=== PATIENT | female | born 1980 | race Caucasian/White ===

== ENCOUNTER → 2018-05-23 07:50 | Outpatient (CLI) | payer OTHER, SELFPAY ==
--- NOTE | 2018-05-23 07:52 | DI.MG.S_ITS ---
BILATERAL DIGITAL SCREENING MAMMOGRAM 3D/2D WITH CAD: 05/23/2018 CLINICAL: Routine screening. Comparison is made to exams dated: 03/03/2016 mammogram and 07/26/2015 mammogram - [facility]. The tissue of both breasts is extremely dense, which lowers the sensitivity of mammography. Current study was also evaluated with a Computer Aided Detection (CAD) system. There is a new oval asymmetry in the right breast posterior depth central to the nipple seen on the craniocaudal view only. Finding is best noted on tomographic CC slice 50. There is are grouped calcifications in the left breast inner aspect middle to posterior depth. These are increased in number. IMPRESSION: INCOMPLETE: NEEDS ADDITIONAL IMAGING EVALUATION The new oval asymmetry in the right breast posterior depth central to the nipple seen on the craniocaudal view only is indeterminate. Additional views with possible ultrasound are recommended. The calcifications in the left breast inner aspect middle to posterior depth are indeterminate. Additional views with possible ultrasound are recommended. This exam was interpreted at Station ID: [id number]. NOTE: For mammograms, a report in lay terms will be sent to the patient. Approximately 15% of breast malignancies will not be visualized mammographically. In the management of a palpable breast mass, a negative mammogram must not discourage biopsy of a clinically suspicious lesion. Electronically Signed By: Ran Hays M.D. ecl/:05/23/2018 19:21:21 copy to: RACHELLE PIERRE copy to: Sushil Alvares letter sent: Additional Imaging Needed ACR BI-RADS Category 0: Incomplete 3340F
--- NOTE | 2018-05-23 07:52 | DI.MRI.S_ITS ---
BREAST MRI OF BOTH BREASTS: 05/23/2018 CLINICAL: BRCA GENE 2 Mutation Positive. PROCEDURE: MR BREAST BI WO/W CON INDICATIONS: BRCA 2 positive. TECHNIQUE: The patient was placed prone in a dedicated breast imaging coil. Precontrast axial STIR and 3D FLASH without fat saturation sequences were obtained. Both before and after bolus injection of contrast, sequential 1-minute axial 3D FLASH with fat saturation sequences for 3 time points, with subtraction images and maximum intensity projections (MIP's) generated. Delayed sagittal FLASH images with fat saturation were also obtained. 20 ccs of Prohance intravenous contrast was utilized for this exam. Computer-aided detection, including computer algorithm analysis of MRI image data for lesion detection and characterization, pharmacokinetic analysis, with further physician review for interpretation, was performed. COMPARISON: [facility], MM SCREENING MAMMO BI, 05/23/2018, 8:25. [facility], US, BREAST UNILATERAL LIMITED, 03/03/2016, 9:20. [facility], BILATERAL DIAGNOSTIC MAMMOGRAM, 03/03/2016, 8:45. [facility], US, BREAST UNILATERAL LIMITED, 09/03/2015, 10:55. [facility], , BILATERAL BREAST W FINDINGS: Image quality: Excellent. There is marked background parenchymal enhancement bilaterally. There is extremely dense fibroglandular tissue bilaterally. Right breast: There is a 0.8 x 0.4 cm transaxial oval circumscribed mass in the inferior medial right breast near the 4:00 position middle depth, best seen on axial image 49 of series 10. This mass demonstrates persistent contrast enhancement kinetics, T2 signal hyperintensity on axial STIR imaging (as seen on axial image 22 of series 2), and internal T1 hyperintense fatty hilum on axial image 44 of series 3 consistent with an intramammary lymph node. There is a 0.7 x 0.5 cm transaxial oval circumscribed mass in the superior medial right breast near 12:00 position posterior depth, best seen on axial image 71 of series 10. This mass demonstrates persistent contrast enhancement kinetics, an internal fatty hilum suggestive of an intramammary lymph node, and is unchanged in size and appearance when compared with prior breast MRI of 08/30/15. Left breast: There is 0.4 x 0.4 cm transaxial focus of non-mass enhancement in the lower-outer left breast at middle depth near the 4:00 position. This focus demonstrates persistent contrast enhancement kinetics and no correlate on comparison breast MRI of 08/30/15. Miscellaneous: No axillary or internal mammary lymphadenopathy. IMPRESSION: INCOMPLETE: NEEDS ADDITIONAL IMAGING EVALUATION 1. Difficult exam given bilateral marked background parenchymal enhancement and extremely dense fibroglandular tissue. 2. 0.4 cm focus of non-mass enhancement in the lower-outer left breast at middle depth near the 4:00 position. A second look targeted ultrasound is recommended for further evaluation. 3. Probable 0.8 cm intramammary lymph node in the right breast near the 4:00 position middle depth and probable 0.7 cm intramammary lymph node in the right breast near the 12:00 position posterior depth. These can also be evaluated on the second look ultrasound recommended above. 4. No axillary or internal mammary lymphadenopathy. BIRADS 0: Incomplete. Need Additional Imaging Evaluation. COMMENT: The imaging literature indicates that a negative contrast breast MRI examination has a high sensitivity and a moderate specificity for detecting and excluding invasive carcinomas to a detection threshold of 3-5 mm; nonetheless, appropriate clinical and mammographic follow-up are recommended. MRI is not sensitive for detecting DCIS (ductal carcinoma in situ) and may not detect large invasive neoplasms that show only minimal enhancement such as mucinous carcinoma. If there are suspicious calcifications or clinically worrisome palpable masses, then biopsy should still be considered. Invasive neoplasms can be hidden by co-existent and benign enhancement caused by mastitis, hormone therapy effects, radiation therapy, , and recent biopsy or surgery. False positive examinations can occur in a number of circumstances, including breasts that have recently been subject to invasive procedures and those that contain atypical ductal hyperplasia, hormonally stimulated glandular tissue, fat necrosis, or radial scars. This exam was interpreted at Station ID: [id number]. Electronically Signed By: Ran Hays M.D. ecl/:05/23/2018 18:28:10 copy to: RACHELLE PIERRE copy to: Sushil Alvares letter sent: Additional Imaging Needed ACR BI-RADS Category 0: Incomplete 3340F
== END ==
PROVIDERS: Family Provider Family Medicine; PCP Family Medicine; Visit Provider Obstetrics & Gynecology
DX: Z15.01 Genetic susceptibility to malignant neoplasm of breast (principal); Z15.09 Genetic susceptibility to other malignant neoplasm
CPT/HCPCS: 77063; 77067; A9579; C8908

== ENCOUNTER → 2018-06-03 09:02 | Outpatient (CLI) | payer OTHER, SELFPAY ==
--- NOTE | 2018-06-03 09:03 | DI.US.S_ITS ---
LIMITED ULTRASOUND OF RIGHT BREAST: 06/03/2018 CLINICAL: Patient returns today to evaluate findings in the right breast seen on MRI. Comparison is made to exams dated: 05/23/2018 mammogram, 03/03/2016 mammogram, 09/03/2015 ultrasound, 08/30/2015 breast MRI, 07/26/2015 mammogram, and 05/23/2018 breast MRI - [facility]. Real-time and Doppler ultrasound of the right breast 4 o'clock and 12 o'clock regions were performed. Menon scale images of the real-time examination were reviewed. Targeted ultrasound was performed along the 12 o'clock and 4 o'clock positions of the right breast in the region of the probable intramammary lymph nodes described on comparison breast MRI of 05/23/2018. No underlying breast mass or abnormality is identified. IMPRESSION: PROBABLY BENIGN No ultrasound evidence of an underlying breast mass or abnormality is identified at the 12 o'clock and 4 o'clock positions of the right breast at the sites of the probable intramammary lymph nodes described on comparison breast MRI of 05/23/2018. A follow-up diagnostic mammogram and possible targeted ultrasound in 6 months is recommended to demonstrate stability. These results and recommendations were discussed with the patient at the time of the exam by the [facility] Radiologist Dr. Robbie Hess in person. This exam was interpreted at Station ID: [id number]. Electronically Signed By: Ran Hays M.D. ecl/:06/03/2018 10:26:08 copy to: RACHELLE PIERRE copy to: Sushil Alvares letter sent: Followup Recommended Ultrasound BI-RADS: 3 Probably benign
--- NOTE | 2018-06-03 10:59 | DI.US.S_ITS ---
LIMITED ULTRASOUND OF LEFT BREAST: 06/03/2018 CLINICAL: Patient returns today to evaluate findings seen on MRI in the left breast. Comparison is made to exams dated: 05/23/2018 breast MRI, 05/23/2018 mammogram, 03/03/2016 mammogram, 03/03/2016 ultrasound, 08/30/2015 breast MRI, and 07/26/2015 ultrasound - [facility]. Real-time and Doppler ultrasound of the left breast 3-4 o'clock region were performed. Menon scale images of the real-time examination were reviewed. There is 0.5 cm x 0.4 cm x 0.4 cm oval mass with a circumscribed margin in the left breast at 4 o'clock 4 cm from the nipple. This oval mass is hypoechoic with internal echoes and mild posterior acoustic enhancement. This may correlate with breast MRI findings. Color flow imaging demonstrates that there is no vascularity present. There is 0.8 cm x 0.6 cm x 0.4 cm oval mass with a circumscribed margin in the left breast at 3 o'clock 4 cm from the nipple. This oval mass is hypoechoic with internal echoes and mild posterior acoustic enhancement. This may correlate with breast MRI findings. Color flow imaging demonstrates that there is no vascularity present. IMPRESSION: SUSPICIOUS OF MALIGNANCY 1) The 0.5 cm x 0.4 cm x 0.4 cm oval mass in the left breast at 4 o'clock 4 cm from the nipple may represent a complicated cyst and is at a low suspicion for malignancy. An ultrasound guided cyst aspiration is recommended, with subsequent ultrasound guided biopsy recommended should cyst aspiration fail to remove the mass of concern. 2) The 0.8 cm x 0.6 cm x 0.4 cm oval mass in the left breast at 3 o'clock 4 cm from the nipple may represent a complicated cyst and is at a low suspicion for malignancy. An ultrasound guided cyst aspiration is recommended, with subsequent ultrasound guided biopsy recommended should cyst aspiration fail to remove the mass of concern. These results and recommendations were discussed with the patient at the time of the exam by the [facility] Radiologist Dr. Robbie Hess in person. This exam was interpreted at Station ID: [id number]. Electronically Signed By: Ran Hays M.D. ecl/:06/03/2018 10:18:48 copy to: RACHELLE PIERRE copy to: Sushil Hogge letter sent: Biopsy Required Ultrasound BI-RADS: 4a Suspicious abnormality - low suspicion for malignancy
== END ==
PROVIDERS: Family Provider Family Medicine; PCP Family Medicine; Visit Provider Obstetrics & Gynecology
DX: R92.8 Other abnormal and inconclusive findings on diagnostic imaging of breast (principal); N63.23 Unspecified lump in the left breast, lower outer quadrant
CPT/HCPCS: 76642

== ENCOUNTER → 2018-06-21 07:43 | Outpatient (CLI) | payer OTHER, SELFPAY ==
--- NOTE | 2018-06-21 | DI.US.S_ITS ---
MULTIPLE FINE NEEDLE ASPIRATIONS LEFT BREAST: 06/21/2018 CLINICAL: FNA of 2 breast masses/cysts. Correlation is made to exams dated: 06/03/2018 ultrasound, 05/23/2018 breast MRI, 05/23/2018 mammogram, 03/03/2016 mammogram, and 03/03/2016 ultrasound - [facility]. A fine needle aspiration was performed for the 0.5 cm oval complicated cyst located in the left breast at 4 o'clock anterior depth 4 cm from the nipple. This was described on the previous ultrasound report. The skin was prepped in the usual manner. Local anesthetic was administered to the access site. The abnormality was approached from the lateral aspect. An 18 gauge needle was percutaneously placed into the abnormality under guidance. Once the needle was documented to be in the correct location, the lesion completely collapsed with aspiration. The clear fluid was discarded. A second fine needle aspiration was performed for the 0.6 cm complicated cyst located in the left breast at 3 o'clock anterior depth 4 cm from the nipple. This was described on the previous ultrasound report. The skin was prepped in the usual manner. Local anesthetic was administered to the access site. The abnormality was approached from the lateral aspect. An 18 gauge needle was percutaneously placed into the abnormality under guidance. Once the needle was documented to be in the correct location, this cyst completely decompressed with aspiration and the clear aspirate was discarded. IMPRESSION: FINE NEEDLE ASPIRATION BENIGN Fine needle aspiration of the 0.6 cm cyst in the left breast at 3 o'clock anterior depth was successful. Fine needle aspiration of the 0.5 cm cyst in the left breast at 4 o'clock anterior depth was successful. Clear felix fluid aspirate indicated benign finding. A follow-up mammogram in 6 months and a breast MRI in 12 months is recommended to demonstrate stability/resolution. The patient is at high risk for breast cancer given positive test for BRCA. Recommend annual screening mammograms and MRIs offset by 6 months from each other. Patient is also requiring a follow up right breast mammogram and right breast ultrasound to evaluate for stability of possible intramammary lymph node seen on recent breast MRI dated 05/23/2018. This exam was interpreted at Station ID: [id number]. Jack Miguel M.D. at/:06/24/2018 14:09:15 copy to: RACHELLE PIERRE copy to: Sushil Alvares
== END ==
PROVIDERS: Family Provider Family Medicine; PCP Family Medicine; Visit Provider Obstetrics & Gynecology
DX: N60.02 Solitary cyst of left breast (principal)
CPT/HCPCS: 10005; 10006; 76942

== ENCOUNTER → 2019-02-14 08:52 | Outpatient (CLI) | payer OTHER, SELFPAY ==
--- NOTE | 2019-02-14 | DI.US.S_ITS ---
LIMITED ULTRASOUND OF LEFT BREAST: 02/14/2019 CLINICAL: 6 month follow-up biopsy. Comparison is made to exams dated: 02/14/2019 mammogram, 06/21/2018 fine needle aspiration, 06/03/2018 ultrasound, 05/23/2018 breast MRI, 05/23/2018 mammogram, and 03/03/2016 mammogram - [facility]. Color flow and real-time ultrasound of the left breast 3-4 o'clock region were performed. Menon scale images of the real-time examination were reviewed. There is a biopsy proven benign 0.9 cm x 0.3 cm x 0.5 cm oval cyst in the left breast at 3 o'clock middle depth 4 cm from the nipple. This abnormality is not significantly changed. Color flow imaging demonstrates that there is no vascularity present. The aspirated cyst previously seen in the 4:00 region is no longer present. IMPRESSION: BENIGN There is no sonographic evidence of malignancy. The 0.9 cm x 0.3 cm x 0.5 cm oval cyst in the left breast is benign. Return to annual mammogram and a breast MRI screening schedule is recommended. Findings and recommendations were conveyed to the patient at time of exam. This exam was interpreted at Station ID: [id number]. Electronically Signed By: Jayla lainez/:02/14/2019 11:33:00 copy to: RACHELLE PIERRE copy to: Sushil Alvares letter sent: Normal Exam Ultrasound BI-RADS: 2 Benign
--- NOTE | 2019-02-14 08:53 | DI.MG.S_ITS ---
BILATERAL DIGITAL DIAGNOSTIC MAMMOGRAM 3D/2D: 02/14/2019 CLINICAL: Patient returns for a 6 month follow up of bilateral breasts. Comparison is made to exams dated: 05/23/2018 breast MRI, 05/23/2018 mammogram, and 03/03/2016 mammogram - [facility]. The tissue of both breasts is extremely dense, which lowers the sensitivity of mammography. Diffuse microcalcifications are scattered bilaterally, left more than right. No significant masses, calcifications, or other findings are seen in either breast. No right breast findings on mammogram to correspond to findings on MRI. IMPRESSION: INCOMPLETE: NEEDS ADDITIONAL IMAGING EVALUATION No suspicious findings in either breast. Bilateral breast ultrasound recommended for further follow up of right breast MRI findings and left breast biopsied lesions. This was performed immediately following this exam. This exam was interpreted at Station ID: [id number]. NOTE: For mammograms, a report in lay terms will be sent to the patient. Approximately 15% of breast malignancies will not be visualized mammographically. In the management of a palpable breast mass, a negative mammogram must not discourage biopsy of a clinically suspicious lesion. Electronically Signed By: Jayla lainez/:02/14/2019 11:26:56 copy to: RACHELLE PIERRE copy to: Sushil Alvares ACR BI-RADS Category 0: Incomplete 3340F
--- NOTE | 2019-02-14 08:53 | DI.US.S_ITS ---
LIMITED ULTRASOUND OF RIGHT BREAST: 02/14/2019 CLINICAL: 6 month follow-up. Comparison is made to exams dated: 02/14/2019 mammogram, 06/03/2018 ultrasound, 05/23/2018 breast MRI, 05/23/2018 mammogram, 03/03/2016 mammogram, and 09/03/2015 ultrasound [facility]. Color flow and real-time ultrasound of the right breast 4 o'clock, 6 o'clock, and 12 o'clock regions were performed. Menon scale images of the real-time examination were reviewed. The breast tissue of the right breast is homogeneous dense. No significant abnormalities were seen sonographically in the right breast. Specifically, no findings to correspond to the findings on breast MRI. IMPRESSION: NEGATIVE There is no sonographic evidence of malignancy. Return to annual mammogram and a breast MRI screening schedule is recommended. Findings and recommendations were conveyed to the patient at time of exam. This exam was interpreted at Station ID: [id number]. Electronically Signed By: Jayla lainez/:02/14/2019 11:29:30 copy to: RACHELLE PIERRE copy to: Sushil Alvares Ultrasound BI-RADS: 1 Negative
== END ==
PROVIDERS: Family Provider Family Medicine; PCP Family Medicine; Visit Provider Obstetrics & Gynecology
DX: R92.8 Other abnormal and inconclusive findings on diagnostic imaging of breast (principal); R92.1 Mammographic calcification found on diagnostic imaging of breast; N60.02 Solitary cyst of left breast; Z15.01 Genetic susceptibility to malignant neoplasm of breast; Z15.09 Genetic susceptibility to other malignant neoplasm
CPT/HCPCS: 76642; 77066; G0279

== ENCOUNTER 2019-05-26 08:43 | Day surgery (SDC) | payer OTHER, SELFPAY ==
[2019-05-26] VITALS (9 sets, daily range): BP systolic 101–118; BP diastolic 62–78; PULSE 61–86; RESP 10–16; TEMP 36.3–36.9; O2SAT 96–978; BMI 25.2
--- NOTE | 2019-05-26 | PATH_ITS ---
[facility] Accession Number: [id number] . 01 Material submitted: . uterine adnexa - BILATERAL TUBES AND OVARIES . 02 Diagnosis: Bilateral Tubes and Ovaries, Bilateral Salpingo-oophorectomy: Ovary #1 with corpora lutea and no significant histomorphologic abnormality. Ovary #2 with a prominent hemorrhagic corpus luteum and no significant histomorphologic abnormality. Fallopian tube #1 with benign paratubal cysts (up to 8 mm in greatest dimension) and no significant histomorphologic abnormality; negative for atypia or malignancy. Fallopian tube #2 with no significant histomorphologic abnormality; negative for atypia or malignancy. [facility] 05/29/2019 1328 Local . 02 Electronically signed: . Nahomi Anthony MD, Pathologist NPI- [id number] . 01 Gross description: . Received in formalin, labeled bilateral tubes + ovaries, are two ovaries (ovary #1-4.5 x 1.7 x 1.5 cm; ovary #2-2.9 x 1.8 x 1.1 cm) with attached fimbriated fallopian tubes (tube #1: length-5.8 cm, diameter-0.5 cm; tube #2: length-8.2 cm, diameter-0.7 cm). The ovaries have clay-yellow smooth shiny bosselated and focally flat serosa and clay-white solid firm parenchyma with corpus albicans and corpus luteum identified. The fallopian tubes have dark maroon smooth shiny serosa and clay unremarkable lumens. Section code: (A1) ovary #1, sales representative raw fibers serial sections; (A2) ovary #2, sales representative raw fibers serial sections; (A3) fallopian tube #1, sales representative raw fibers serial sections; (A4-A5) fimbria #1, bivalved, entirely submitted; (A6) fallopian tube #2, sales representative raw fibers serial sections; (A7-A8) fimbria #2, bivalved, entirely submitted. ([id number]) /MRV 05/27/2019 1353 Local . 02 Pathologist provided ICD-10: Z15.01 . 02 CPT . 224187 Performed at: [facility] [address] [id number] MD Tommie Nunez MD Phone: [phone] Performed at: [address] [facility] [id number] [place], [place] [id number] MD Ida Castro MD Phone: [phone]
[2019-05-26] MEDS: LACTATED RINGERS 1,000 ML 100 ML IV (09:20)
[2019-05-26] MEDS: SCOPOLAMINE 1 PATCH TOP (10:21)
[2019-05-26] MEDS: APREPITANT 40 MG CAPSULE PO (10:21)
--- NOTE | 2019-05-26 10:41 | PM.HP.1 ---
History of Present Illness History of Present Illness Date Patient Seen: 05/26/19 Time Patient Seen: 10:41 Chief complaint: 44819 Narrative: Patient is a 38-year-old 4 para 3 who presents for a laparoscopic bilateral salpingo-oophorectomy due to BRCA positive status Patient History Medical History (Updated 05/16/19 @ 12:54 by Yesenia Rosales RN) Abnormal Pap smear of cervix (Resolved ~2005) BRCA2 gene mutation positive (Acute) Chicken pox (Resolved ~1989) Headache (Chronic) Migraines (Chronic ~2001) Surgical History (Updated 05/14/18 @ 21:17 by Jane Sarkar) Anesthesia (Resolved) Status post delivery (04/17/06) Status post delivery (09/24/10) Family & Social History Family History (Updated 08/10/14 @ 00:00 by Conversion Provider) Grandfather Age: 88 High cholesterol Mother Age: 59 High cholesterol Grandfather No problems noted. Grandmother No problems noted. Social History: household members spouse,children Tobacco & Substance use: Smoking Status Never smoker alcohol intake current alcohol intake frequency a few times a week Substance Use Type does not use Meds Home Medications and Allergies Home Medications Medication Instructions Recorded Confirmed Type ibuprofen 200 mg PO PRN #0 07/23/12 05/26/19 History sumatriptan succinate 100 mg tablet 50 - 100 mg PO PRN PRN #10 tab 06/03/18 05/26/19 Rx Allergies Allergy/AdvReac Type Severity Reaction Status Date / Time No Known Drug Allergies Allergy Verified 05/26/19 09:14 Exam Vital Signs (past 8 hours): - 05/26/19 09:04 Temperature 97.6 F Pulse Rate 75 Respiratory Rate 15 Blood Pressure 118/71 Pulse Oximetry 98 Oxygen Delivery Method Room Air Narrative Exam Narrative: HEENT: No thyromegaly, no anterior cervical or supraclavicular lymphadenopathy. Lungs:Clear to auscultation bilaterally, no wheezes. Cardiovascular: Regular rate and rhythm, no murmurs, rubs, or gallops. Abdomen: Well-healed Pfannenstiel scar. No hepatosplenomegaly. No masses palpable. External genitalia: Normal Vagina: Normal Cervix: Normal Bimanual exam: 6 Week size uterus. Mobile. Rectal: No masses. Assessment & Plan Assessment & Plan narrative: Assessment: 38-year-old 4 para 3 who is BRCA 2 positive Plan: Laparoscopic bilateral salpingo-oophorectomy The risks, benefits, and alternatives to the procedure were explained to the patient. The risks including bleeding, infection, injury to the bowel, bladder, or ureters. She understands these risks and agrees to proceed. A full par Q was held and consent form was signed. Time Spent With Patient Time with patient: 15-24 minutes
--- NOTE | 2019-05-26 10:43 | PM.PREOP ---
Pre-operative Note Interval Note History & Physical reviewed/Exam performed by Physician: Yes Changes to H&P: No
--- NOTE | 2019-05-26 11:20 | SUR.OPER ---
Lithotomy on padded OR bed, head on pillow, arms secured on padded arm boards at <90 degrees abduction. Legs secured in padded yellow fins stirrups.
[2019-05-26] MEDS: BUPIVACAINE 0.5% W/ EPI (PF) 30 ML VIAL INJ (11:27)
--- NOTE | 2019-05-27 07:20 | PM.GYNOP.1 ---
Operative Date/Time/Diagnoses Date of procedure: 05/26/19 Time of procedure: 13:30 Pre-op diagnosis: BRCA 2 positive Post-op diagnosis: same Procedure & Clinicians Procedure: Procedures Operation Date: 05/26/19 10:45 Actual Procedures Side Surgeon p Laparoscopic Salpingectomy-oophorectomy Bilateral Shelia Vázquez MD Indications: BRCA 2 positive Surgeon: Shelia Vázquez Anesthesia Type: General Operative Notes Findings: Normal tubes and ovaries Normal gallbladder Normal appendix Normal uterus Closure Type: primary Specimen(s): left tube & ovary and right tube & ovary Estimated blood loss (mL): 5 Blood products transfused: none Procedure in detail: After informed consent was obtained, the patient was taken to the operating room where she was placed in the dorsal supine position. After adequate general endotracheal anesthesia was achieved, she was placed in the dorsal lithotomy position, and prepped and draped in the usual sterile fashion. A time-out was performed. A bivalve speculum was placed into the vagina and the anterior lip of cervix was grasped with a single-tooth tenaculum. The cervical os was sequentially dilated until the Zumi uterine manipulator could pass easily into the endometrial cavity. The single-tooth tenaculum was removed from the anterior lip of the cervix. The bivalve speculum was removed from the vagina. Attention was then turned to the abdomen where 6 cc of 0.5% Marcaine with epinephrine were injected in the umbilical fold. A 5 mm incision was made. The Veress needle was placed into the peritoneal cavity, and its placement confirmed by aspiration and drop test. The abdominal cavity was insufflated with 3.8 L of CO2. The Veress needle was removed, and a 5 mm trocar was placed without difficulty. Two other incisions were made midway between the pubic symphysis and umbilicus after 6 cc of 0.5% Marcaine with epinephrine were injected. Two 5 mm trocars were placed under direct visualization. The right tube and ovary were grasped with an atraumatic grasper. With settings at 40 w, the infundibulopelvic ligament was cauterized and cut with the PlasmaKinetic as was the utero-ovarian ligament. The tube was amputated from the uterus at the cornua. This was repeated on the patient's left side. 6 cc of 0.5% Marcaine with epinephrine were injected through the previous Pfannenstiel incision. A 1 cm incision was made. An 11 mm trocar was placed through the suprapubic incision. The small endobag was placed into the peritoneal cavity. The tubes and ovaries were placed into the bag. The trocar was removed. The fascia was extended slightly and the bag was removed through the suprapubic incision. The pelvis was irrigated and there was no bleeding noted. The instruments were removed from the abdomen. The CO2 was allowed to escape. The incisions were repaired with 0 Vicryl on the suprapubic incision on the fascia. All of the incisions were closed with 4 0 Biosyn in a subcuticular fashion. Steri-Strips, 2 x 2, and op site were placed. The Zumi uterine manipulator was removed from the uterus. Sponge, lap, and instrument counts were correct x2. The patient tolerated the procedure well, and was taken to PACU in stable condition. Complications: none Post-operative Condition: stable Disposition: PACU Plan for aftercare: Home after recovery
== END 2019-05-26 13:05 | disposition home or self-care (01) ==
PROVIDERS: PCP Family Medicine; Visit Provider Obstetrics & Gynecology
PROC: 0UT74ZZ Resection of Bilateral Fallopian Tubes, Percutaneous Endoscopic Approach (ICD-10-PCS; CPT 58661; principal; 2019-05-26 10:45)
DX: Z15.01 Genetic susceptibility to malignant neoplasm of breast (principal); G43.909 Migraine, unspecified, not intractable, without status migrainosus; N83.10 Corpus luteum cyst of ovary, unspecified side; N83.8 Other noninflammatory disorders of ovary, fallopian tube and broad ligament
CPT/HCPCS: 58661; J2250; J3010; J8501

== ENCOUNTER → 2019-07-08 08:49 | Outpatient (CLI) | payer OTHER, SELFPAY ==
--- NOTE | 2019-07-08 08:51 | DI.MRI.S_ITS ---
BREAST MRI OF BOTH BREASTS: 07/08/2019 CLINICAL: BRCA 2 Positive. PROCEDURE: MR BREAST BI WO/W CON INDICATIONS: 1yr f/u BRCA 2 positive TECHNIQUE: The patient was placed prone in a dedicated breast imaging coil. Precontrast axial STIR and 3D FLASH without fat saturation sequences were obtained. Both before and after bolus injection of contrast, sequential 1-minute axial 3D FLASH with fat saturation sequences for 3 time points, with subtraction images and maximum intensity projections (MIP's) generated. Delayed sagittal FLASH images with fat saturation were also obtained. Computer-aided detection, including computer algorithm analysis of MRI image data for lesion detection and characterization, pharmacokinetic analysis, with further physician review for interpretation, was performed. COMPARISON: [facility], BREAST LT LIMITED, 02/14/2019, 10:08. [facility], BREAST LT LIMITED, 06/03/2018, 9:31. [facility], , MR BREAST BI WO/W CON, 05/23/2018, 8:25. FINDINGS: Image quality: Excellent. There is minimal background parenchymal enhancement. Right breast: There is a stable homogeneously enhancing 0.5 x 0.4 cm mass within the right breast at 4:00 at the middle depth which demonstrates T2 enhancement and likely represents a fibroadenoma (series 10, image 47). The intramammary lymph node at 12:00 at the posterior duct described on the prior MRIs not visualized on the current study. No new suspicious mass lesions or abnormal enhancement in the right breast. Left breast: The punctate focus of enhancement at the middle depth in the left breast at 4:00 is unchanged from the prior MRI dated 05/23/18. No new suspicious mass lesions or abnormal enhancement in the left breast. Miscellaneous: No axillary or intramammary adenopathy. Limited visualization of the heart, lungs, mediastinum, and upper abdomen are unremarkable. IMPRESSION: NEGATIVE 1. Negative breast MRI. A 1 year screening mammogram is recommended. Continued screening breast MRIs recommended given BRCA history. This exam was interpreted at Station ID: [id number]. Electronically Signed By: Sandy Hernandez M.D. lk/:07/08/2019 17:08:18 copy to: RACHELLE PIERRE copy to: Sushil Alvares letter sent: Normal Exam ACR BI-RADS Category 1: Negative 3341F
== END ==
PROVIDERS: PCP Family Medicine; Referring Provider Obstetrics & Gynecology; Visit Provider Obstetrics & Gynecology
DX: N63.14 Unspecified lump in the right breast, lower inner quadrant (principal); Z15.01 Genetic susceptibility to malignant neoplasm of breast
CPT/HCPCS: 77049; A9579

== ENCOUNTER → 2020-02-17 17:49 | Outpatient (CLI) | payer OTHER, SELFPAY ==
--- NOTE | 2020-02-17 17:52 | DI.MG.S_ITS ---
BILATERAL DIGITAL SCREENING MAMMOGRAM 3D/2D WITH CAD: 02/17/2020 CLINICAL: Routine screening. Comparison is made to exams dated: 02/14/2019 mammogram, 05/23/2018 mammogram, and 03/03/2016 mammogram - [facility]. The tissue of both breasts is extremely dense, which lowers the sensitivity of mammography. Current study was also evaluated with a Computer Aided Detection (CAD) system. There are benign calcifications in both breasts. No significant masses, calcifications, or other findings are seen in either breast. There has been no significant interval change. IMPRESSION: BENIGN There is no mammographic evidence of malignancy. A 1 year screening mammogram is recommended. Future imaging is recommended as follows: 07/08/2020 breast MRI. This exam was interpreted at Station ID: [id number]. NOTE: For mammograms, a report in lay terms will be sent to the patient. Approximately 15% of breast malignancies will not be visualized mammographically. In the management of a palpable breast mass, a negative mammogram must not discourage biopsy of a clinically suspicious lesion. Electronically Signed By: Tommie monreal/rosalva:02/18/2020 08:23:51 copy to: Shelia Vázquez letter sent: Normal Exam ACR BI-RADS Category 2: Benign Finding(s) 3342F
== END ==
PROVIDERS: PCP Family Medicine; Referring Provider Family Medicine; Visit Provider Family Medicine
DX: Z12.31 Encounter for screening mammogram for malignant neoplasm of breast (principal)
CPT/HCPCS: 77063; 77067

== ENCOUNTER → 2020-11-10 12:58 | Outpatient (CLI) | payer OTHER, SELFPAY ==
--- NOTE | 2020-11-10 12:59 | DI.MRI.S_ITS ---
BREAST MRI OF BOTH BREASTS: 11/10/2020 CLINICAL: BRACA 2 positive. PROCEDURE: MR BREAST BI WO/W CON INDICATIONS: BRCA 2 Pos TECHNIQUE: The patient was placed prone in a dedicated breast imaging coil. Precontrast axial STIR and 3D FLASH without fat saturation sequences were obtained. Both before and after bolus injection of contrast, sequential 1-minute axial 3D FLASH with fat saturation sequences for 3 time points, with subtraction images and maximum intensity projections (MIP's) generated. Delayed sagittal FLASH images with fat saturation were also obtained. Computer-aided detection, including computer algorithm analysis of MRI image data for lesion detection and characterization, pharmacokinetic analysis, with further physician review for interpretation, was performed. COMPARISON: [facility], , BREAST RT LIMITED, 02/14/2019, 10:01. [facility], , US BREAST LT LIMITED, 02/14/2019, 10:08. [facility], , MM SCREENING MAMMO BI, 02/17/2020, 18:06. [facility], , MR BREAST BI WO/W CON, 07/08/2019, 9:23. FINDINGS: Image quality: Excellent. There is mild background parenchymal enhancement. Background enhancement is mildly increased compared to the prior study but is symmetric. Right breast: The right breast has a 0.5 x 0.4 centimeter mass in the 4 o'clock middle depth which demonstrates post gadolinium enhancement with benign washout characteristics on dynamic imaging consistent with a fibroadenoma (series 10 image 54) and is unchanged compared to the prior MRI on 07/08/2019. Multiple subcentimeter cysts are present. There is no other abnormal focus, mass, or non masslike enhancementin the right breast. No axillary or internal mammary chain adenopathy. Left breast: The punctate focus of enhancement in the middle depth of the left breast previously described is unchanged. The left breast demonstrates no other abnormal focus, mass, or non masslike enhancement. No internal mammary chain adenopathy. The left axilla demonstrates multiple enlarged lymph nodes the largest measuring 1.3 centimeters in short axis forming a conglomerate of lymph nodes measuring approximately 4.0 x 2.8 x 3.0 centimeters. Lymph nodes are asymmetrically larger compared to the right and are larger compared to the prior MRI. IMPRESSION: INCOMPLETE: NEEDS ADDITIONAL IMAGING EVALUATION 1. Left axillary adenopathy, asymmetrically enlarged compared to the right axilla and larger compared to the prior MRI. Recommend diagnostic mammogram of the left breast and ultrasound of the left axilla. 2. No evidence of malignancy in the right breast. 3. Mildly increased symmetric background parenchymal enhancement is likely cyclical. 4. 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 This exam was interpreted at Station ID: [id number]. Electronically Signed By: Juan Carlos Onofre acr/:11/10/2020 15:59:00 copy to: Shelia Vázquez letter sent: Additional Imaging Needed ACR BI-RADS Category 0: Incomplete 3340F
== END ==
PROVIDERS: PCP Family Medicine; Referring Provider Family Medicine; Visit Provider Family Medicine
DX: Z12.39 Encounter for other screening for malignant neoplasm of breast (principal); R59.0 Localized enlarged lymph nodes; Z15.01 Genetic susceptibility to malignant neoplasm of breast; Z15.02 Genetic susceptibility to malignant neoplasm of ovary; Z15.09 Genetic susceptibility to other malignant neoplasm
CPT/HCPCS: 77049

== ENCOUNTER → 2020-11-22 08:39 | Outpatient (CLI) | payer OTHER, SELFPAY ==
--- NOTE | 2020-11-22 | DI.US.S_ITS ---
ULTRASOUND OF LEFT AXILLA: 11/22/2020 CLINICAL: Left axillary lymphadenopathy on recent MRI. Comparison is made to exams dated: 11/22/2020 mammogram, 11/10/2020 breast MRI, 02/17/2020 mammogram, 07/08/2019 breast MRI, 02/14/2019 ultrasound, and 02/14/2019 mammogram - [facility]. Color flow and real-time ultrasound of the left axilla were performed. Menon scale images of the real-time examination were reviewed. No significant abnormalities were seen sonographically in the left axilla. IMPRESSION: PROBABLY BENIGN No sonographic evidence of left axillary lymphadenopathy. There are numerous normal appearing and non-enlarged nodes in the left axilla. The lymphadenopathy seen in the left axilla seems to have resolved, and was potentially due to a COVID vaccine which was reportedly administrered in August. A follow-up ultrasound in 3 months is recommended to document stability. This exam was interpreted at Station ID: [id number]. Electronically Signed By: Sushil Dey M.D. jr/:11/22/2020 09:59:57 copy to: Shelia Vázquez letter sent: Followup Recommended Ultrasound BI-RADS: 3 Probably benign
--- NOTE | 2020-11-22 08:42 | DI.MG.S_ITS ---
BILATERAL DIGITAL DIAGNOSTIC MAMMOGRAM 3D/2D: 11/22/2020 CLINICAL: Left axillary enlargement per MRI. Comparison is made to exams dated: 11/22/2020 ultrasound, 11/10/2020 breast MRI, 02/17/2020 mammogram, 07/08/2019 breast MRI, 02/14/2019 ultrasound, and 02/14/2019 [facility]. The tissue of both breasts is extremely dense, which lowers the sensitivity of mammography. No significant masses, calcifications, or other findings are seen in either breast. IMPRESSION: INCOMPLETE: NEEDS ADDITIONAL IMAGING EVALUATION No suspicious mammographic abnormality demonstrated. An ultrasound of the left axilla will be performed to evaluate the left axillary lymphadenopathy seen previously. This exam was interpreted at Station ID: [id number]. NOTE: For mammograms, a report in lay terms will be sent to the patient. Approximately 15% of breast malignancies will not be visualized mammographically. In the management of a palpable breast mass, a negative mammogram must not discourage biopsy of a clinically suspicious lesion. Electronically Signed By: Sushil Dey M.D. jr/:11/22/2020 09:57:55 copy to: Shelia Vázquez ACR BI-RADS Category 0: Incomplete [id number]
== END ==
PROVIDERS: PCP Family Medicine; Referring Provider Family Medicine; Visit Provider Family Medicine
DX: R92.8 Other abnormal and inconclusive findings on diagnostic imaging of breast (principal); R59.0 Localized enlarged lymph nodes; N63.20 Unspecified lump in the left breast, unspecified quadrant; N63.10 Unspecified lump in the right breast, unspecified quadrant
CPT/HCPCS: 76882; 77066; G0279

== ENCOUNTER → 2022-01-20 08:36 | Outpatient (CLI) | payer OTHER, SELFPAY ==
--- NOTE | 2022-01-20 08:38 | DI.US.S_ITS ---
PROCEDURE: US AXILLARY ONLY LT COMPARISON: [facility], , US AXILLARY ONLY LT, 11/22/2020, 9:17. INDICATIONS: abnormal findings on radiology testing FINDINGS: IMPRESSION: Dictated by: Joe Vasquez M.D. on 01/20/2022 at 10:27 Approved by: Joe Vasquez M.D. on 01/20/2022 at 10:27
--- NOTE | 2022-01-20 08:38 | DI.MG.S_ITS ---
BILATERAL DIGITAL DIAGNOSTIC MAMMOGRAM 3D/2D: 01/20/2022 CLINICAL: Short term follow up of the left breast, due for bilateral imaging. Comparison is made to exams dated: 11/22/2020 ultrasound, 11/22/2020 mammogram, 11/10/2020 breast MRI, and 02/17/2020 mammogram - [facility]. Both breasts are extremely dense, which lowers the sensitivity of mammography (category d />75% glandular tissue). No significant masses, calcifications, or other findings are seen in either breast. IMPRESSION: INCOMPLETE: NEEDS ADDITIONAL IMAGING EVALUATION There is no abnormality seen in the left breast to correspond with the prior breast MRI finding in the axilla. US report to follow. Based on Tyrer-Cuzick model (a risk assessment model), the patient's lifetime risk is 72.7% and her 10 year risk is 16.6%. If a patient has an elevated risk, a more comprehensive evaluation should be considered and/or a referral to a genetic counselor. The [place] [employer], [employer], and NCCN Guidelines advise the consideration of Breast MRI as an adjunct to screening mammography in patients whose Lifetime risk to develop breast cancer is 20% or higher. This exam was interpreted at Station ID: [id number]. NOTE: For mammograms, a report in lay terms will be sent to the patient. Approximately 15% of breast malignancies will not be visualized mammographically. In the management of a palpable breast mass, a negative mammogram must not discourage biopsy of a clinically suspicious lesion. Electronically Signed By: Joe Vasquez M.D. lc/:01/20/2022 10:02:49 copy to: Shelia Vázquez ACR BI-RADS Category 0: Incomplete 3340F
--- NOTE | 2022-01-20 09:40 | DI.US.S_ITS ---
Procedure: US axillary only lt ULTRASOUND OF LEFT BREAST AND AXILLA: 01/20/2022 CLINICAL: Follow-up axillary nodes. Comparison is made to exams dated: 01/20/2022 mammogram, 11/22/2020 ultrasound, 11/22/2020 mammogram, 11/10/2020 breast MRI, 02/17/2020 mammogram, and 07/08/2019 breast MRI - [facility]. Real-time and Doppler ultrasound of the left breast axilla were performed. Menon scale images of the realtime examination were reviewed. No significant abnormalities were seen sonographically in the left axilla. IMPRESSION: NEGATIVE There is no sonographic evidence of malignancy. There is no abnormality seen in the left axilla to correspond with the breast MRI finding in the left axilla. A 1 year screening mammogram and a breast MRI is recommended. This exam was interpreted at Station ID: [id number]. Electronically Signed By: Joe jaimes/rosalva:01/20/2022 10:27:17 copy to: Shelia Vázquez letter sent: Normal Exam Ultrasound BI-RADS: 1 Negative
== END ==
PROVIDERS: PCP Family Medicine; Referring Provider Family Medicine; Visit Provider Family Medicine
DX: R92.8 Other abnormal and inconclusive findings on diagnostic imaging of breast (principal)
CPT/HCPCS: 76882; 77066; G0279

== ENCOUNTER → 2022-06-07 11:58 | Outpatient (CLI) | payer OTHER, SELFPAY ==
[2022-06-07 12:58] LABS: COVID19 -Nasal RAPID Negative (Negative)
== END ==
PROVIDERS: PCP Family Medicine; Visit Provider Surgery
DX: Z01.812 Encounter for preprocedural laboratory examination (principal); Z20.822 Contact with and (suspected) exposure to COVID-19
CPT/HCPCS: 87635; C9803

== ENCOUNTER 2022-06-08 12:21 | Day surgery (SDC) | payer OTHER, SELFPAY ==
[2022-06-08] MEDS: LACTATED RINGERS 1,000 ML 100 ML IV (13:47)
[2022-06-08 13:48] VITALS: BMI 25.0
--- NOTE | 2022-06-08 14:15 | PM.HP.1 ---
History of Present Illness History of Present Illness Date Patient Seen: 06/08/22 Time Patient Seen: 14:15 Chief complaint: [facility] [place] Narrative: Elvia is a 41-year-old woman with BRCA2 mutation. Her sister has had breast cancer. Her father has had multiple polyps and several colonoscopies for polypectomy. Her oncologists recommended she have a colonoscopy because of risk factors Patient History Medical History (Updated 11/23/20 @ 06:18 by Shelia Vázquez MD) Abnormal Pap smear of cervix (~2005) BRCA2 gene mutation positive Chicken pox (~1989) Headache Migraines (~2001) Surgical History (Updated 05/14/18 @ 21:17 by Jane Sarkar) Anesthesia Status post delivery (04/17/06) Status post delivery (09/24/10) Family & Social History Family History (Updated 08/10/14 @ 00:00 by Conversion Provider) Grandfather Age: 91 High cholesterol Mother Age: 62 High cholesterol Grandfather No problems noted. Grandmother No problems noted. Social History: household members spouse,children Tobacco & Substance use: Smoking Status Never smoker alcohol intake current alcohol intake frequency a few times a week Substance Use Type does not use Meds Home Medications and Allergies Home Medications Medication Instructions Recorded Confirmed Type ibuprofen 200 mg tablet 200 mg PO PRN ##0 07/23/12 11/03/20 History estradiol 0.05 mg/24 hr semiweekly See Rx Instructions .Route 09/29/20 11/03/20 Rx transdermal patch (Deidra) .COMPLEX #8 patches sumatriptan succinate 100 mg 50 - 100 mg PO PRN PRN migraine 12/15/20 Rx tablet (Imitrex) headache #10 tabs estradiol 0.075 mg/24 hr See Rx Instructions .Route 01/31/22 Rx semiweekly transdermal patch .COMPLEX #8 patches sodium,potassium,mag sulfates 17.5 See Rx Instructions PO .COMPLEX 05/18/22 Rx gram-3.13 gram-1.6 gram oral soln #354 mL (Suprep Bowel Prep Kit) Allergies Allergy/AdvReac Type Severity Reaction Status Date / Time No Known Drug Allergies Allergy Verified 11/03/20 12:00 Exam Const General: healthy appearing Assessment & Plan Assessment and plan (1) BRCA2 gene mutation positive: Status: Acute Plan We reviewed the risks and benefits of colonoscopy and she would like to proceed Time Spent With Patient Critical Care time: I spent a total of [] minutes of critical care time on this patient's care today; this time is exclusive of procedural time.
[2022-06-08 14:49] VITALS: BP 103/52; PULSE 80; RESP 20; TEMP 36.6; O2SAT 100
--- NOTE | 2022-06-08 14:53 | P.OP.COLON_ITS ---
Operative Date/Time/Diagnoses Date of procedure: 06/08/22 Time of procedure: 14:53 Pre-op diagnosis: Colon cancer screening Post-op diagnosis: same Procedure & Clinicians Study performed: Colonoscopy Same procedure as scheduled: Yes Surgeon: Harry Peguero Procedure Notes Procedure in detail: Surgeon: Harry Peguero MD Anesthesia: Aurea Mckeon CRNA Procedure: The patient was brought to the endoscopy suite, placed in left lateral decubitus position. The patient was connected to monitoring devices. A time-out was performed. Sedation was administered. Once the patient was adequately sedated, a digital rectal exam was performed and was normal. The scope was then inserted and advanced to the cecum where the appendiceal orifice was identified and photographed. The scope was then slowly withdrawn over greater than 6 minutes. The mucosa was thoroughly inspected. No polyps or oth er lesions were noted. The scope was retroflexed in the rectum. No abnormalities were noted. The scope was straightened and removed. The patient was awakened and brought to recovery. Scope withdrawal time: 10 minutes Sedation time: 17 minutes EBL: 0 Findings: Normal colon Post-procedure Disposition: PACU
[2022-06-08 14:56] VITALS: BP 102/65; PULSE 81; RESP 18; O2SAT 99
[2022-06-08 15:00] VITALS: BP 101/58; PULSE 77; RESP 14; TEMP 36.5; O2SAT 99
[2022-06-08 15:02] VITALS: BP 101/58; PULSE 64; RESP 18; O2SAT 100
== END 2022-06-08 15:13 | disposition home or self-care (01) ==
PROVIDERS: PCP Family Medicine; Referring Provider Internal Medicine Gastroenterology; Visit Provider Surgery
PROC: 0DJD8ZZ Inspection of Lower Intestinal Tract, Via Natural or Artificial Opening Endoscopic (ICD-10-PCS; CPT 45378; principal; 2022-06-08 13:30)
DX: Z12.11 Encounter for screening for malignant neoplasm of colon (principal); Z15.01 Genetic susceptibility to malignant neoplasm of breast
CPT/HCPCS: 45378; J2405; J2704

== ENCOUNTER → 2022-06-30 10:43 | Outpatient (CLI) | payer OTHER, SELFPAY ==
--- NOTE | 2022-06-30 | DI.MRI.S_ITS ---
BREAST MRI OF BOTH BREASTS: 06/30/2022 CLINICAL: Genetics. PROCEDURE: MR BREAST BI WO/W CON INDICATIONS: Genetic susceptibility to malignant neoplasm TECHNIQUE: The patient was placed prone in a dedicated breast imaging coil. Precontrast axial STIR and 3D FLASH without fat saturation sequences were obtained. Both before and after bolus injection of contrast, sequential 1-minute axial 3D FLASH with fat saturation sequences for 3 time points, with subtraction images and maximum intensity projections (MIP's) generated. Delayed sagittal FLASH images with fat saturation were also obtained. Computer-aided detection, including computer algorithm analysis of MRI image data for lesion detection and characterization, pharmacokinetic analysis, with further physician review for interpretation, was performed. COMPARISON: [facility], MR, MR BREAST BI WO/W CON, 05/23/2018, 8:25. [facility], MR, MR BREAST BI WO/W CON, 07/08/2019, 9:23. [facility], MR, MR BREAST BI WO/W CON, 11/10/2020, 13:24. FINDINGS: Image quality: Excellent. There is extensive background parenchymal enhancement. Right breast: 0.4 cm enhancing mass within the right breast at 4:00 o'clock at a middle depth is redemonstrated and appears unchanged from the prior studies (series 6/image 50). Findings suggest a stable fibroadenoma. No new suspicious mass lesions or abnormal enhancement within the right breast. Left breast: There is a new 0.4 x 0.9 by 0.5 cm region of enhancement within the left breast at 2:00 o'clock, 4 cm from the nipple at a middle depth (series 15/image 91 and series 10/image 84). No other suspicious mass lesions or areas of enhancement within the left breast. Miscellaneous: No axillary adenopathy. No intramammary adenopathy. Visualized portions of the heart, mediastinum, lungs, and upper abdomen are grossly unremarkable. IMPRESSION: INCOMPLETE: NEEDS ADDITIONAL IMAGING EVALUATION 1. New focal area of enhancement within the lateral aspect of the left breast as described above. Second-look ultrasound is recommended to further characterize this finding and evaluate for neoplasm. If not visualized under ultrasound, MRI biopsy of this region could be performed. 2. No other suspicious mass lesions or foci of abnormal enhancement. his exam was interpreted at Station ID: [id number]. Electronically Signed By: Sandy drew/:06/30/2022 12:30:04 copy to: Shelia Vázquez letter sent: Additional Imaging Needed ACR BI-RADS Category 0: Incomplete [id number]
== END ==
PROVIDERS: PCP Family Medicine; Referring Provider Surgery Surgical Oncology; Visit Provider Surgery Surgical Oncology
DX: Z15.01 Genetic susceptibility to malignant neoplasm of breast (principal); Z15.09 Genetic susceptibility to other malignant neoplasm; Z12.39 Encounter for other screening for malignant neoplasm of breast
CPT/HCPCS: 77049; A9579